=== PATIENT | female | born 1940 | race Caucasian/White ===

== ENCOUNTER 2017-01-02 10:40 | Emergency (ER) | payer MEDICARE ==
[2017-01-02 10:58] VITALS: BP 155/89; TEMP 99.4; O2SAT 95
[2017-01-02] MEDS ORDERED: diphenhydrAMINE HCL 50 MG/ML VIAL IV ONE (11:05)
[2017-01-02] MEDS ORDERED: ONDANSETRON INJ 4 MG/2 ML VIAL IV ONE (11:05)
--- NOTE | 2017-01-02 11:09 | ED.PDOC ---
History of Present Illness - General Chief Complaint: General Stated Complaint: dizziness,diarrhea,facial swelling and pain Time Seen by Provider: 01/02/17 10:54 Source: patient, RN notes reviewed, Vital Signs reviewed Exam Limitations: no limitations - History of Present Illness Initial Comments: Patient presents to the ER with c/o facial swelling and rash with nausea and diarrhea. She reports that morning her nose started to swell. Since then the swelling and rash have spread over her face and neck. She also reports that the bones in her jaw hurts. + itching. No improvement with OTC Benadryl. This morning she started with nausea and 3 episodes of uncontrollable diarrhea. She did start Buspar on but took the first dose after the nose swelling had already started. Timing/Duration: getting worse - over the past 2 days Severity: moderate Improving Factors: nothing Worsening Factors: nothing Associated Symptoms: headaches, nausea/vomiting Allergies/Adverse Reactions: Allergies Hydrocortisone [From Cortizone-5] Allergy (Verified 02/17/14 04:52) Home Medications: Ambulatory Orders Allopurinol 02/17/14 Ambien 10 mg PO BEDTIME 02/17/14 Antivert 02/17/14 Atenolol 02/17/14 Clopidogrel Bisulfate [Plavix] 75 mg PO QD 02/17/14 [place] 5/325 02/17/14 Pletal 02/17/14 Potassium Chloride 02/17/14 Simvastatin 02/17/14 Cilostazol 11/07/15 Promethazine Tab 11/07/15 Review of Systems - Review of Systems Constitutional: States: no symptoms reported EENTM: States: see HPI. Denies: throat pain, throat swelling, mouth swelling Respiratory: States: no symptoms reported. Denies: cough, short of breath Cardiology: States: no symptoms reported Gastrointestinal/Abdominal: States: abdominal pain, diarrhea, nausea. Denies: vomiting Musculoskeletal: States: see HPI, other - Jaw pain Skin: States: see HPI, rash - and swelling of face Neurological: States: headache. Denies: numbness, paresthesia, tingling, tremors, weakness All other Systems: No Change from Baseline Past Medical History (General) - Patient Medical History Hx Stroke: No Hx Asthma: No Hx of COPD: Yes Hx Congestive Heart Failure: Yes Hx Hypertension: Yes Hx Diabetes: No Hx Gastroesophageal Reflux: Yes - occasional, not daily Hx Renal Disease: No Hx Cancer: Yes - Bone Hx Hepatitis C: No - Vaccination History Hx Tetanus, Diphtheria Vaccination: Yes Hx Influenza Vaccination: Yes Hx Pneumococcal Vaccination: Yes - Social History Hx Tobacco Use: Yes Hx Chewing Tobacco Use: No Hx Alcohol Use: No Hx Substance Use: No Hx Substance Use Treatment: No Hx Depression: No Hx Physical Abuse: No Hx Emotional Abuse: No Hx Suspected Abuse: No Family Medical History - Family History Father Family History: Unknown Living Status: Physical Exam - Physical Exam General Appearance: Alert, Comfortable, Well Developed, Well Groomed, Well Hydrated, Well Nourished, Other - appears uncomfortable Eye Exam: bilateral normal Ears, Nose, Throat: hearing grossly normal, normal ENT inspection, normal pharynx Neck: non-tender, full range of motion, supple Respiratory: chest non-tender, lungs clear, normal breath sounds, no respiratory distress Cardiovascular/Chest: normal peripheral pulses, regular rate, rhythm, no edema, no gallop, no JVD, no murmur Peripheral Pulses: dorsalis pedis,right: 2+, dorsalis pedis,left: 2+ Gastrointestinal/Abdominal: soft, abnormal bowel sounds - hypoactive, tenderness - mild, diffuse Neurologic: no motor/sensory deficits, alert, normal mood/affect, oriented x 3 Skin Exam: rash - erythematous rash over nose, L side of face, lower face and neck. Rough and slightly warm. Lymphatic: no adenopathy Progress - Progress Progress: 01/02/17 11:14 Can't give steroids because patient is allergic. She refused IV and IV medications, she would prefer PO medications. 01/02/17 11:18 Patient is now requesting to leave and to call back later for her labs. Advised she will need to sign out AMA if she would like to leave. She signed AMA form and left. Departure - Departure Clinical Impression: Allergic reaction Qualifiers: Encounter type: initial encounter Qualified Code(s): T78.40XA - Allergy, unspecified, initial encounter Time of Disposition: 11:25 Disposition: Left Against Medical Advice Departure Forms: ED Discharge - Pt. Copy, Patient Portal Self Enrollment Home Medications: Ambulatory Orders Allopurinol 02/17/14 Ambien 10 mg PO BEDTIME 02/17/14 Antivert 02/17/14 Atenolol 02/17/14 Clopidogrel Bisulfate [Plavix] 75 mg PO QD 02/17/14 [place] 5/325 02/17/14 Pletal 02/17/14 Potassium Chloride 02/17/14 Simvastatin 02/17/14 Cilostazol 11/07/15 Promethazine Tab 11/07/15
[2017-01-02] MEDS ORDERED: diphenhydrAMINE HCL 12.5 MG/5 ML UD PO ONE (11:12)
[2017-01-02] MEDS ORDERED: ONDANSETRON ODT 8 MG TAB SL ONE (11:12)
== END 2017-01-02 11:23 | disposition left against medical advice (07) ==
LOC: ER 10:40
DX: T78.40XA Allergy, unspecified, initial encounter (principal); I11.0 Hypertensive heart disease with heart failure; J44.9 Chronic obstructive pulmonary disease, unspecified; I50.9 Heart failure, unspecified; K21.9 Gastro-esophageal reflux disease without esophagitis; Z85.830 Personal history of malignant neoplasm of bone; Z79.02 Long term (current) use of antithrombotics/antiplatelets; Z88.8 Allergy status to other drugs, medicaments and biological substances; Z79.899 Other long term (current) drug therapy; X58.XXXA Exposure to other specified factors, initial encounter
CPT/HCPCS: 36415; 80053; 85025; Q0163